=== PATIENT | female | born 1990 | race Two or more races ===

== ENCOUNTER 2020-08-19 13:17 | Emergency (ER) | payer SELFPAY ==
[~2020-08-19] VITALS: Ht 157.5 cm; Wt 49.9 kg
[2020-08-19 13:22] VITALS: BP 100/66
== END 2020-08-19 15:05 | disposition left against medical advice (07) ==
LOC: ER 13:17
DX: R51.9 Headache, unspecified (principal); Z53.21 Procedure and treatment not carried out due to patient leaving prior to being seen by health care provider